=== PATIENT | female | born 1990 ===

== ENCOUNTER 2025-02-03 12:07 | Emergency (ER) | payer MEDICAID ==
[~2025-02-03] VITALS: Ht 157.5 cm; Wt 100.0 kg
[2025-02-03 12:16] VITALS: BP 144/99; TEMP 37; O2SAT 99
[2025-02-03 12:35] VITALS: PULSE 114; RESP 16; O2SAT 100
== END 2025-02-03 16:39 | disposition left against medical advice (07) ==
LOC: ER 12:07
DX: R51.9 Headache, unspecified (principal); Z53.21 Procedure and treatment not carried out due to patient leaving prior to being seen by health care provider